=== PATIENT | male | born 1995 | race Caucasian/White ===

== ENCOUNTER 2019-02-06 10:13 | Day surgery (SDC) | payer BC ==
[2019-01-30 09:53] VITALS: BMI 22.5
[2019-02-06] MEDS ORDERED: Lidocaine 2% Jelly 5 ML TUBE ONE (12:48)
[2019-02-06] MEDS ORDERED: Bupivacaine/Epinephrine 0.25% 30 ML VIAL ONE (12:48)
[2019-02-06] MEDS ORDERED: Fentanyl 100 MCG/2 ML VIAL ONE (12:53)
[2019-02-06] MEDS ORDERED: Ondansetron PF 4 MG/2 ML Vial ONE (13:50)
[2019-02-06] MEDS ORDERED: PROPOFOL 200 MG/20 ML VIAL ONE (13:50)
[2019-02-06] MEDS ORDERED: Lidocaine 1% PF 5 ML VIAL ONE (13:50)
[2019-02-06] MEDS ORDERED: Dexamethasone 20 MG/5 ML VIAL ONE (13:50)
--- NOTE | 2019-02-07 13:59 | OP ---
DATE OF PROCEDURE: 02/06/2019 PREOPERATIVE DIAGNOSIS: Fistula in ANO. POSTOPERATIVE DIAGNOSIS: Fistula in ANO. PROCEDURE PERFORMED: Anal fistulotomy, staged, with seton placement. ANESTHESIA: General. ESTIMATED BLOOD LOSS: Minimal. COMPLICATIONS: None. SPECIMEN: None. FINDINGS: Posterior anal fistula. DESCRIPTION OF PROCEDURE: The patient was taken to the operating room and laid supine on the operating room table. After general anesthetic , the patient was placed in the lithotomy position. His perineal area was prepped and draped in a sterile fashion. External opening was probed to an internal opening in the posterior midline. This did appear to traverse the sphincter muscles, so a silk suture was passed through the fistula tract. The superficial tissues were open on top of the fistula probe, leaving only the external sphincter muscle intact. The seton suture was tied down against the sphincter muscle and left in place. Meticulous hemostasis was obtained. The patient was then returned to Recovery in stable condition. All instrument counts, needle counts, and lap counts were correct. Job ID: [id number]
== END 2019-02-06 15:30 | disposition home or self-care (01) ==
LOC: SDC 10:13
PROVIDERS: ATTEND Surgery
PROC: 0DQQXZZ Repair Anus, External Approach (ICD-10-PCS; principal; 2019-02-06)
DX: K60.3 Anal fistula (principal); F17.200 Nicotine dependence, unspecified, uncomplicated; Z98.890 Other specified postprocedural states
CPT/HCPCS: J0131; J0690; J1100; J2001; J2405; J2704; J3010